=== PATIENT | female | born 1975 | race Caucasian/White ===

== ENCOUNTER 2022-10-11 16:12 | Outpatient (CLI) | payer BC, SELFPAY ==
--- NOTE | ~2022-10-11 | MM_ITS ---
EXAMINATION: MM screening alexandra BI w leighann HISTORY: Screening mammogram TECHNIQUE: Craniocaudal and mediolateral oblique 3-D tomosynthesis images were obtained and synthetic 2-D images were generated. CAD analysis was submitted and interpreted. COMPARISON: 07/12/2021, 07/06/2020 [facility] bilateral screening mammogram examinations BREAST PARENCHYMAL COMPOSITION: The breasts are almost entirely fatty. FINDINGS: There is no evidence of suspicious mass, calcification, or architectural distortion to sugg est malignancy in either breast. There has been no suspicious interval change. IMPRESSION: 1. No mammographic evidence of malignancy. 2. Recommend routine screening mammography in one year. BI-RADS Category 1: Negative Reviewed, dictated and finalized at location A.
== END 2022-10-11 16:13 | disposition home or self-care (01) ==
LOC: ANHIMG 16:17
PROVIDERS: PCP Physician Assistant; Visit Provider Physician Assistant
DX: Z12.31 Encounter for screening mammogram for malignant neoplasm of breast (principal)
CPT/HCPCS: 77063; 77067

== ENCOUNTER 2023-12-20 14:55 | Outpatient (CLI) | payer BC, SELFPAY ==
--- NOTE | ~2023-12-20 | MM_ITS ---
EXAMINATION: MM screening alexandra BI w leighann HISTORY: Screening TECHNIQUE: Craniocaudal and mediolateral oblique 3-D tomosynthesis images were obtained and synthetic 2-D images were generated. CAD analysis was submitted and interpreted. COMPARISON: Comparison to multiple prior studies sequentially, with oldest reviewed study dated 07/06/2020. BREAST PARENCHYMAL COMPOSITION: Not dense: There are scattered areas of fibroglandular density. FINDINGS: There is no evidence of suspicious mass, calcification, or architectural distortion to sugg est malignancy in either breast. There has been no suspicious interval change. IMPRESSION: 1. No mammographic evidence of malignancy. 2. Recommend routine screening mammography in one year. BI-RADS Category 1: Negative Reviewed, dictated and finalized at location B.
== END 2023-12-20 14:56 | disposition home or self-care (01) ==
PROVIDERS: PCP Physician Assistant; Visit Provider Obstetrics & Gynecology
DX: Z12.31 Encounter for screening mammogram for malignant neoplasm of breast (principal)
CPT/HCPCS: 77063; 77067

== ENCOUNTER 2024-02-25 01:04 | Day surgery (SDC) | payer BC, SELFPAY ==
[2024-02-18 09:53] VITALS: BMI 32.4
[2024-02-25 12:08] VITALS: BP 117/75; PULSE 78; RESP 18; TEMP 36.2; O2SAT 100
[2024-02-25] MEDS: LACTATED RINGERS 1,000 ML 150 ML IV CONT (12:30)
[2024-02-25 12:34] LABS: BEDSIDEPREGUCG Negative (Negative)
--- NOTE | 2024-02-25 12:38 | P.PNAN_ITS ---
Anes - Initial Pre Proc Eval Procedure: Operation Date: 02/25/24 13:30 Proposed Procedures p Screening Colonoscopy - Pelon Busch MD Date/Time: 02/25/24 12:38 Surgeon: Pelon Busch MD Pre Op Diagnosis: screening colon Patient Data Age: 48 Gender: F Height: 1.7 m Weight: 106.9 kg Last Vital Signs Temp 36.2 C L 02/25/24 12:08 Pulse 78 02/25/24 12:08 Resp 18 02/25/24 12:08 BP 117/75 02/25/24 12:08 Pulse Ox 100 02/25/24 12:08 O2 Del Method Room Air 02/25/24 12:08 Allergies Allergy/AdvReac Type Severity Reaction Status Date / Time ciprofloxacin Allergy Unknown Unknown Verified 02/25/24 12:07 dapsone Allergy Unknown Unknown Verified 02/25/24 12:07 Penicillins Allergy Unknown Unknown Verified 02/25/24 12:07 Home Medications Medication Instructions Recorded Confirmed Type No Home Medications 11/02/22 02/25/24 History Laboratory Tests 02/25/24 12:32 POC Urine HCG, Qual Negative (Negative) Patient hx anesthesia problems: none Family hx anesthesia problems: none Results Review: All pre-operative results and documents have been reviewed as part of the pre- operative evaluation. [facility] Past Medical History Medical History Anemia Enlarged thyroid Irregular heart beat Septate uterus Surgical History Surgical History H/O tubal ligation History of 2 sections History of tonsillectomy Family History Family History Other Family history of cardiovascular disease Family history of osteoporosis Family history of thyroid disease Social History Social History Smoking status: Never smoker Alcohol intake: never Substance use: never Substance use type: does not use Living arrangements: with family Spiritual care concerns: No Anes - Eval Final PreProcedure Day of Procedure 02/25/24 12:38 Patient weight: obese Heart: regular rate and rhythm Lungs: clear to auscultation Airway: Mallampati scale class II Neurological: alert and oriented Last oral intake: >/= 8 hours ASA classification: II Emergent: no Anesthetic plan: proceed Anesthesia type and monitoring: general GIVS Results Review: All pre-operative results and documents have been reviewed as part of the pre- operative evaluation. Informed Consent: The patient's anesthetic plan and its attendant risks and benefits were discussed with the patient/family/POA. Questions were solicited and answers prov ided to the satisfaction of the patient/family/POA.
--- NOTE | 2024-02-25 12:40 | PM.HPGS ---
History of Present Illness History of Present Illness Consent: Risks, benefits, and alternatives have been discussed and questions answered. Patient agrees to proceed with procedure. Chief complaint: screening colon Narrative: Kiarra Montaño is a 48 year old female here for screening colonoscopy, last one about 8-10 years ago Review of Systems Review of Systems: All systems reviewed & are unremarkable except as noted in HPI and below PMFSH Past Medical History Medical History (Updated 02/25/24 @ 12:41 by Pelon Busch MD) Anemia Colon cancer screening Enlarged thyroid Irregular heart beat Septate uterus Surgical History Surgical History H/O tubal ligation History of 2 sections History of tonsillectomy Family History Family History Other Family history of cardiovascular disease Family history of osteoporosis Family history of thyroid disease Social History Social History Smoking status: Never smoker Alcohol intake: never Substance use: never Substance use type: does not use Living arrangements: with family Spiritual care concerns: No Meds Home Medications and Allergies Home Medications Medication Instructions Recorded Confirmed Type No Home Medications 11/02/22 02/25/24 History Allergies Allergy/AdvReac Type Severity Reaction Status Date / Time ciprofloxacin Allergy Unknown Unknown Verified 02/25/24 12:07 dapsone Allergy Unknown Unknown Verified 02/25/24 12:07 Penicillins Allergy Unknown Unknown Verified 02/25/24 12:07 Vital Signs Vital Signs - 24 hr 02/25/24 12:08 Temperature 97.1 F L Pulse Rate 78 Respiratory Rate 18 Blood Pressure 117/75 Pulse Oximetry 100 Oxygen Delivery Room Air Exam Const: General: comfortable and no acute distress HENMT: Face/Nose/Sinus: Normal nares present Eyes: General: appearance normal, both eyes and all related structures Neck: Neck: no JVD Resp: Auscultation: clear to auscultation bilaterally Cardio: Rate: regular rate Rhythm: regular rhythm GI: Inspection: non-distended GI Palp: Yes Soft to palpation Skin: General skin exam: normal color Neuro: General: gait normal Speech: normal speech Extrem: General: normal to inspection Psych: Mental Status: mental status grossly normal Assessment and Plan Assessment and plan (1) Colon cancer screening: Code(s): Z12.11 - Encounter for screening for malignant neoplasm of colon Status: Acute Assessment and Plan: colonoscopy
[2024-02-25 12:53] VITALS: BP 108/83; PULSE 67; RESP 16; O2SAT 98
[2024-02-25 13:03] VITALS: BP 106/65; PULSE 60; RESP 16; O2SAT 99
[2024-02-25 13:10] VITALS: BP 115/73; PULSE 60; RESP 16; O2SAT 100
== END 2024-02-25 13:25 | disposition home or self-care (01) ==
PROVIDERS: Anesthesiology; PCP Physician Assistant; Visit Provider Internal Medicine Gastroenterology
PROC: 0DJD8ZZ Inspection of Lower Intestinal Tract, Via Natural or Artificial Opening Endoscopic (ICD-10-PCS; CPT 45378; principal; 2024-02-25 13:30)
DX: Z12.11 Encounter for screening for malignant neoplasm of colon (principal); K64.8 Other hemorrhoids; E66.9 Obesity, unspecified; Z68.36 Body mass index [BMI] 36.0-36.9, adult
CPT/HCPCS: 45378; J2704; J7120

== ENCOUNTER 2024-05-12 17:46 | Emergency (ER) | payer OTHER, BC, SELFPAY ==
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
--- OUTSIDE RECORDS SUMMARY | 2024-05-12 17:48 | XMS_ITS | Clinical Summary ---
Author Organization [facility] Address [address] [place] [address] Care Team Providers Care Program Support Assistant Name Role Phone Negrita Agrawal Primary Care Pr ovider Allergies Active Allergy Reactions Criticality Noted Date Comments Ciprofloxacin Dapsone Unknown 10/01/2018 Penicillins Medications ergocalciferol (VITAMIN D) 50,000 unit capsule Active ferrous gluconate 236 mg (27 mg iron) tablet Active Active Problems Problem Noted Date Diagnosed Date Multinodular goiter 02/02/2014 Assessment & Plan (01/25/2023 1:22 PM CDT): Thyroid ultrasound done today does not show any significant changes when I compared imaging available on the x-ray portal from 2014 of thyroid ultrasound done at that time. I reassured the patient that this is a unchanged goiter at least from 2014, with to FNA done in the past been benign the of malignancy are very negligible. I would not recommend any further follow-up probably for another 5 years unless the patient develops any any new symptoms Assessment & Plan (10/02/2018 9:47 AM CDT): Bedside ultrasound today showed her right superior nodule previously biopsied x2 is unchanged. Left mid cystic lesion has decreased in size, and left superior thyroid nodule was previously biopsied benign and is similar in size. She does not require repeat biopsy today and can be followed by ultrasound in 3 yrs. -repeat TSH, FT4 today -thyroid ultrasound 3 yrs -RTC 3 yrs Dysphonia 12/18/2013 Abdominal pain 08/29/2012 Palpitations 06/28/2012 Chronic infection of sinus 10/16/2011 Celiac disease 10/16/2011 Never smoked tobacco 10/16/2011 Overview (07/27/2017): Description: 10/16/11 Intracranial tumor 08/08/2011 Surgical History Surgery Date Site/Laterality Comments TUBAL LIGATION SECTION X2 Medical History Medical History Date Comments Nontoxic single thyroid nodule N ontoxic single thyroid nodule - (Added by TW Conv) Family History Medical History Relation Name Comments Hypertension Father Family history of hypertension - (Added by TW Conv) Relation Name Status Comments Father Alive Mother Alive Social History Tobacco Use Types Packs/Day Years Used Date Smoking Tobacco: Never Smokeless Tobacco: Never Tobacco Cessation:Counseling Given: Not Answered Comments No Sex and Gender Information Value Date Recorded Sex Assigned at Not on file Legal Sex Female 12:24 AM COTTON SEED CULLER Gender Identity Not on file Sexual Orientation Not on file Obstetrics History Last Filed Vital Signs Vital Sign Reading Time Taken Comments Blood Pressure 100/70 01/25/2023 9:13 AM CDT Pulse 85 01/25/2023 9:13 AM CDT Temperature - - Respiratory Rate - - Oxygen Saturation 100% 06/26/2012 1:08 PM CDT Inhaled Oxygen Concentration - - Weight 104.4 kg (230 lb 1 oz) 01/25/2023 9:13 AM CDT Height 170.2 cm (5' 7 ) 01/25/2023 9:13 AM CDT Body Mass Index 36.03 01/25/2023 9:13 AM CDT Plan of Treatment Health Maintenance Due Date Last Done Comments Breast Cancer Screening-Mammogram 1974 Cervical Cancer Screening 1974 Colon Cancer Screening-Colonoscopy 1974 Depression Screening 1974 Hepatitis C Screening 1974 DTaP/Tdap/Td Vaccine (1 - Tdap) 1985 Regular Well Visit/Exam 18-64 1992 Covid-19 Vaccine ( - season) 2023 05/28/2020, 05/07/2020, 04/23/2020, Additional history exists Influenza Vaccine (#1) 2023 , 12/31/2014, 01/17/2010, Additional history exists Zoster Vaccine (1 of 2) 2024 Pneumococcal vaccine <65 Aged Out No longer eligible based on patient's age to complete this topic Insurance [facility] CHOICE PLUS Care Teams Program Support Assistant Relationship Specialty Start Date End Date Negrita Agrawal PA PCP - General Physician Tea Bag Machine Tender 10/02/18
--- OUTSIDE RECORDS SUMMARY | 2024-05-12 17:48 | XMS_ITS | Encounter Summary ---
Author Organization [facility] Address [address] [place] [address] Phone Care Team Providers Care Tobacco Sample Puller Name Role Phone Provider, None Primary Care Provider Unavailabl e Encounter Details Date Type Department Care Team (Late st Contact Info) Description 08/08/2021 Lab Requisition [facility] Services [address] [place] [address] Yaneli Spann APRN, COAL MILL OPERATOR [address] [place] [address] Encounter for antibody response examination; Encounter for screening for other viral diseases Social History Tobacco Use Types Packs/Day Years Used Date Smoking Tobacco: Never Assessed Comments Unknown Sex and Gender Information Value Date Recorded Sex Assigned at Not on file Legal Sex Female 5:43 PM CDT Gender Identity Not on file Sexual Orientation Not on file documented as of this encounter Progress Notes * Yaneli Spann APRN, CNP - 08/08/2021 3:40 PM CDT labs documented in this encounter Plan of Treatment Not on file documented as of this encounter Procedures Procedure Name Priority Date/Time Associated Diagnosis Comments HEPATITIS B SURFACE ANTIBODY (HBSAB) Routine 08/08/2021 1:00 PM CDT Encounter for antibody response examination Encounter for screening for other viral diseases documented in this encounter Results * HEPATITIS B SURFACE ANTIBODY (HBSAB) (08/08/2021 1:00 PM CDT) HEPATITIS B SURFACE ANTIBODY 12.54 mIU/mL [facility] ARCH [id number] 08/08/2021 10:46 PM CDT [facility] Comment: Detected Range: >12.00 Individual is considered immune to HBV infection Blood No Phlebotomy Charged / Unknown 08/08/2021 1:00 PM CDT 08/08/2021 3:41 PM CDT us Yaneli Spann ASPHALT WORKER, COAL MILL OPERATOR CHEMISTRY ORDERAB LES Final Result [facility] [address] [place] [address], [place] documented in this encounter Visit Diagnoses Diagnosis Encounter for antibody response examination Antibody response examination Encounter for screening for other viral diseases documented in this encounter Care Teams Tobacco Sample Puller Relationship Specialty Start Date End Date Provider, None [place] PCP - General 07/14/22 documented as of this encounter
--- OUTSIDE RECORDS SUMMARY | 2024-05-12 17:48 | XMS_ITS | Clinical Summary ---
Author Organization [facility] Address [address] [place] [address] Care Team Providers Care Chief Investigator Name Role Phone Unavailable Primary Care Provider Unavailabl e Source Comments [facility],non-owned Affiliates and Associated Physician Practices is amultiple site organization consisting of ambulatory clinics and hospital sitesin [place], [place], [place] and [place]. This disclosure is being madepursuant to the Care Everywhere program and may not contain all information available regarding this patient. Last updated 18.[facility] [employer] Social History Tobacco Use Types Packs/Day Years Used Date Smoking Tobacco: Never Assessed Sex and Gender Information Value Date Recorded Sex Assigned at Not on file Gender Identity Not on file Sexual Orientation Not on file Plan of Treatment Health Maintenance Due Date Last Done Comments COLOGUARD (AGES 45-75) - COL ON CA SCREENING 1974 COLON MONITORING 1974 COLONOSCOPY - COLON CA SCREENING 1974 CT COLONOGRAPHY - COLON CA SCREENING 1974 Colorectal Cancer Screening 1974 FIT - COLON CA SCREENING 1974 FLEX SIG - COLON CA SCREENING 1974 LIPID TESTING 1974 MAMMOGRAM 1974 PAP SMEAR 1974 HIV SCREENING 1989 HEPATITIS C SCREENING 02/27/1992 DTAP/TDAP/TD VACCINES (1 - Tdap) 1993 HEPATITIS B VACCINE (1 of 3 - 19+ 3-dose series) 1993 COVID-19 VACCINE ( - 2023-2 5 season) 2023 INFLUENZA VACCINE (#1) 2023 PNEUMOCOCCAL VACCINE 50+ (1 of 1 - PCV) 2024 ZOSTER VACCINE (1 of 2) 2024 DEPRESSION SCREENING 04/16/2024 HIB VACCINE Aged Out No longer eligi ble based on patient's age to complete this topic HPV VACCINE Aged Out No longer eligi ble based on patient's age to complete this topic MENINGOCOCCAL (Group B) VACCINE Aged Out No longer eligible based on patient's age to complete this topic MENINGOCOCCAL VACCINE Aged Out No keeley obie eligible based on patient's age to complete this topic PNEUMOCOCCAL VACCINE Aged Out No long er eligible based on patient's age to complete this topic
--- OUTSIDE RECORDS SUMMARY | 2024-05-12 17:48 | XMS_ITS | Encounter Summary ---
Author Organization [facility] Address [address] [place] [address] Phone Care Team Providers Care Privacy Specialist Name Role Phone Provider, None Primary Care Provider Unavailabl e Encounter Details Date Type Department Care Team (Latest Contact Info) Description 08/23/2022 Transcribe Orders [facility] Patient Access Admitting [address] [place] [address] Latricia Cordoba, HADOOP ANALYST, GLOBAL PRODUCT MANAGER [address] [place] [address] Special screening examination for respiratory tuberculosis (Primary Dx) Social History Tobacco Use Types Packs/Day Years Used Date Smoking Tobacco: Never Assessed Comments Unknown Sex and Gender Information Value Date Recorded Sex Assigned at Not on file Legal Sex Female 5:43 PM CDT Gender Identity Not on file Sexual Orientation Not on file COVID-19 Exposure Response Date Recorded In the last 10 days, have yo u been in contact with someone who was confirmed or suspected to have Coronavirus/COVID-19? No / Unsure 08/23/2022 12:38 PM CDT documented as of this encounter Plan of Treatment Not on file documented as of this encounter Visit Diagnoses Diagnosis Special screening examination for respiratory tuberculosis- Primary Screening examination for pulmonary tuberculosis documented in this encounter Care Teams Privacy Specialist Relationship Specialty Start Date End Date Provider, None [place] PCP - General 07/14/22 documented as of this encounter
--- OUTSIDE RECORDS SUMMARY | 2024-05-12 17:48 | XMS_ITS | Data Portability ---
Author Organization [facility] [employer], Main Office Address [address] [place] [address] Assessment No assessment recorded. Plan of Treatment Reminders Order Date Submit Date Provider Last Modified By Organization Details Last Modified Time Details Appointments None recorded. Lab CBC w/ auto diff 2022 023 [email or web address] [facility], [address], [place], [address], 3 10:42:31 CMP, serum or plasma 2022 023 [email or web address] 4 [facility], [address], [place], [address], 3 10:42:31 lipid panel, serum 2022 023 [email or web address] [facility], [address], [place], [address], 3 10:42:31 HbA1c (hemoglobin A1c), blood 2022 023 [email or web address] 4 [facility], [address], [place], [address], 3 10:42:31 TSH + free T4, serum 2022 023 [place] [facility], [address], [place], [address], 3 09:26:29 T3, free, serum or plasma 2022 023 [email or web address] [facility], [address], [place], [address], 3 10:42:30 tsi (thyroid-st imulating immunoglobu biju), serum 2022 023 [email or web address] 4 [facility], [address], [place], [address], 3 10:42:30 unlisted lab - thyroid peroxidase and thyroglobul in antibodies 2022 023 [email or web address] 4 [facility], [address], [place], [address], 3 10:42:30 insulin, serum 2022 023 [email or web address] 4 [facility], [address], [place], [address], 3 10:42:31 Referral endocrinolo gy referral [address] [place] [address] [facility] , [address], [place], [address], 3 15:24:20 Procedures colonoscopy screening (PROC) [address] [facility], [address], [place], [address], 4 08:30:10 Surgeries None recorded. Imaging US, thyroid 2022 023 [email or web address] 4 [facility], [address], [facility] [address], [place], [address], 4 12:34:48 Medication Orders None recorded. Patient TargetsNo targets recorded. Patient InstructionsNo instructions recorded. Reason for Referral Endocrinology Referral for M ultinodular goiter Referring Physician: Negrita Agrawal, Internal Medicine, Encounter Date: 08/29/2022 Results Created Date Observation Date Name Description Value Unit Range Abnormal Flag Note LastModifiedBy Organization Detail LastModifiedTime 07/20/19 22 07/12/2021 MAMMO , marv barong, digit al, bilat eral No observ ation record ed. [id number] [facility] (Radiology Scheduling) [address] [place] [address], [address], 06/14/2022 20:24:09 10/13/19 23 10/11/2022 MAMMO , bhupendrae chad, digit al, bilat eral No observ ation record ed. [address], [place], [address], 01/02/2023 18:35:40 Result Notes None recorded. Problems Name Problem SNOMED Code Status Onset Date Resolution Date Notes Provider Name and Address Organization Details Recorded Time Body mass index 30+ - obesity 826706480 Active 2021 Not Available [facility] 3 20:22:15 Diabetes mellitus screening Active 2021 Not Available [facility] 3 20:22:15 Adult health examination Active 2021 Not Available [facility] 3 20:22:15 Cholesterol screening Active 2021 Not Available [facility] 3 20:22:15 Screening for malignant neoplasm of colon Active 2021 Not Available [facility] 3 20:22:15 Vitamin D deficiency 77148062 Active 2021 Not Available [facility] 3 20:22:15 Acute urinary tract infection 290691580 Active 2021 Not Available [facility] 3 20:22:15 Iron deficiency anemia 03463460 Active 2021 Not Available [facility] 3 20:22:16 Multinodular goiter 792688534 Active 2022 MARYAM Hebert [address] [place] [address], [address] , [place] [facility] 16:38:27 Problem Notes None recorded. Procedures Surgical History Date Name Laterality Status Provider Name and Address Organization Details Recorded Time 04/16/19 10 Date of Last Colonoscopy completed Not Available [facility] 06/14/2022 20:21:37 Biopsy completed Not Available [facility] 04/2022 20:21:38 Tonsillectomy completed Not Available [facility] 06/14/2022 20:21:38 BOTANY PROFESSOR Surgery completed Not Available [facility] 06/14/2022 20:21:38 Vascular Surgery completed Not Available [facility] 06/14/2022 20:21:38 Imaging Results Imaging Date Name Status LastModified by Organiz ation Details LastModified Time 07/12/2021 MAMMO, screening, digital, bilateral completed [id number] [facility] (Radiology Scheduling) [address] [place] [place] [address], [place], [address], 06/14/2022 20:24:09 10/11/2022 MAMMO, screening, digital, bilateral completed [address] [facility] [address], [place], [address], 01/02/2023 18:35:40 Procedure Notes None recorded. Medical Equipment None Reported. Allergies Allergen ID Allergen Name Allergen Category Reaction Reaction Severity Criticality Documentation Date Start Date Code Code System Note Provider Name and Address Organization Details Recorded Time 82414 Product containin g penicilli n and antibioti c (product) medicatio n Not available Not available Not available 06/14/2022 52113 05 SNOMED Not Available [facility] 3 20:24:07 50915 dapsone medicatio n Not available Not available Not available 06/14/2022 3108 RxNorm Not Available [facility] 3 20:24:07 74547 Cipro medicatio n Not available Not available Not available 06/14/2022 96644 3 RxNorm Not Available [facility] 3 20:24:07 Medications Name Sig Start Date Stop Date Status Note LastModified by Organization Details LastModified Time azithromycin 250 mg tablet 08/28 completed Not Available Not Available Not Available ondansetron HCl 4 mg tablet TAKE 1 TABLET BY MOUTH EVERY 8 HOURS NEEDED 05/23 completed Not Available Not Available Not Available clindamycin HCl 150 mg capsule Take 1 capsule every 6 hours by oral route. 12/09 completed Not Available Not Available Not Available phentermine 37.5 mg tablet Take 1 tablet every day by oral route. 08/28 completed Not Available Not Available Not Available sulfamethoxa zole 800 mg-trimethop rim 160 mg tablet TAKE 1 TABLET BY MOUTH EVERY 12 HOURS 08/28 completed Not Available Not Available Not Available tramadol 50 mg tablet TAKE 1 TABLET BY MOUTH EVERY 6 HOURS NEEDED 05/23 completed Not Available Not Available Not Available oseltamivir 75 mg capsule 01/01 completed Not Available Not Available Not Available neomycin-sd ymyxin-dexam eth 3.5 mg/mL-10,000 unit/mL-0.1% eye drops 01/01 completed Not Available Not Available Not Available fluocinonide 0.05 % topical cream 01/01 completed Not Available Not Available Not Available Vitals Date Recorded Body mass index (BMI) Body height Oxygen saturation Oxygen saturation in Arterial blood by Pulse oximetry Heart rate Body temperature Body weight Systolic blood pressure Diastolic blood pressure Provider Name and Address Organization Details Last Updated DateTime 2 36.8 kg/m2 172.72 cm 98 % 98 % 60 /min 98.3 [degF] 299007. 35 g 110 mm[Hg] 79 mm[Hg] Not Available [facility] 3 20:22:06 Date Recorded Body height Body temperature Body mass index (BMI) Body weight Respiratory rate Oxygen saturation Oxygen saturation in Arterial blood by Pulse oximetry Heart rate Systolic blood pressure Diastolic blood pressure Provider Name and Address Organization Details Last Updated DateTime 3 172.72 cm 97.2 [degF] 35.1 kg/m2 250160. 84 g 16 /min 97 % 97 % 68 /min 120 mm[Hg] 72 mm[Hg] MENDEL Pickett [place] [facility] 3 15:20:08 Social History Question Answer Notes LastModified by Organizat ion Details LastModified Time Tobacco Smoking Status Never Smoker Not Available [facility] 06/14/2022 20:21:35 Do You Have An Advance Directive? No [id number] Information not available 06/14/2022 What Is Your Level Of Alcohol Consumption? Occasional [id number] Information not available 06/14/2022 What Is Your Level Of Caffeine Consumption? Occasional [id number] Information not available 06/14/2022 In The 14 Days Before Symptom Onset, Have You Had Close Contact With A Laboratory-confirm ed COVID-19 While That Case Was Ill? No [id number] 1573 Information not available 06/14/2022 In The 14 Days Before Symptom Onset, Have You Had Close Contact With A Person Who Is Under Investigation For COVID-19 While That Person Was Ill? No [id number].[id number] 7334 Information not available 06/14/2022 What Type Of Diet Are You Following? REGULAR [id number].506607 4007 Information not available 06/14/2022 Have There Been Any Changes To Your Family Or Social Situation? No [id number].980807 3658 Information not available 06/14/2022 Are There Any Guns Present In Your Home? No MIGRATION.070321 9001 Information not available 06/14/2022 Do You Use Insect Repellent Routinely? No [email or web address] Information not available 08/28/2022 Do You Have A Medical Power Of Cap Lining Machine Operator? No [email or web address] Information not available 08/28/2022 What Is Your Relationship Status? [id number] [id number] Information not available 06/14/2022 Do You Use Your Seat Belt Or Car Seat Routinely? Yes MIGRATION.852353 8336 Information not available 06/14/2022 Do You Have Smoke And Carbon Monoxide Detectors In Your Home? Yes MIGRATION.[id number] 3155 Information not available 06/14/2022 Do You Use Any Illicit Or Recreational Drugs? No MIGRATION.297110 3407 Information not available 06/14/2022 Do You Use Sunscreen Routinely? Yes MIGRATION.258053 0850 Information not available 06/14/2022 Have You Recently Traveled Abroad? No MIGRATION.893451 3287 Information not available 06/14/2022 Do You Have Any Dietary Restrictions? No MIGRATION.223810 7120 Information not available 06/14/2022 Do You Or Have You Ever Used Any Other Forms Of Tobacco Or Nicotine? No MIGRATION.326712 3264 Information not available 06/14/2022 Sex: Unknown Functional Status Question Answer Note LastModified by Organizat ion Details LastModified Time What is your exercise level? Occasional [id number] Information not available 06/14/2022 Mental Status None recorded. Family History Relationship Description Onset Age of this Age Resolved Age Notes LastModified by Organization Details LastModified Time Father Hypertensive disorder [id number] Not available 06/14/2022 20:21:39 Unspecified Relation Diabetes mellitus [id number] Not available 06/14/2022 20:21:39 Unspecified Relation Cerebrovascu lar accident MIGRATION.509 [id number] Not available 06/14/2022 20:21:39 Unspecified Relation Chronic obstructive pulmonary disease MIGRATION.652 [id number] Not available 06/14/2022 20:21:39 Unspecified Relation Malignant tumor of lung MIGRATION.756 [id number] Not available 06/14/2022 20:21:39 Medical History Condition Response BOWEL PROBLEMS Y BACK / NECK PROBLEMS Y BREAST PROBLEMS Y ENT Y VASCULAR DISEASE Y ANXIETY DISORDER Y Gynecological History Statement/Question Response Date of Last Pap 04/16/2016 Date of Last Mammogram 07/12/2021 Date of Last Colonoscopy 04/16/2009 Obstetrics History GPAL:G 0 P 0 0 0 0 Immunizations Vaccine Type Date Status Note Provider Nam e and Address Organization Details Recorded Time COVID-19, mRNA, LNP-S, PF, 100 mcg/0.5mL dose or 50 mcg/0.25mL dose 1 completed Not Available [facility] 06/14/2022 20:24:06 COVID-19, mRNA, LNP-S, PF, 100 mcg/0.5mL dose or 50 mcg/0.25mL dose 1 completed Not Available [facility] 06/14/2022 20:24:06 Hep B, unspecified formulation 1 completed Not Available [facility] 06/14/2022 20:24:06 Past Encounters Encounter ID Performer Location Encounter Start Date Encounter Closed Date Diagnosis/Indication Diagnosis SNOMED-CT Code Diagnosis ICD10 Code Diagnosis Note [id number] [facility] [address] [place] [address] 05/24/2021 00:00:00 06/13/2021 19:12:46 [id number] MARYAM Hebert [facility] [address] [place] [address] 08/29/2022 14:58:43 08/29/2022 16:38:59 Adult health examination 515185232 Z00.00 well exam completed and annual labs ordered Cholesterol screening 27 9865927 Z13.220 Diabetes m ellitus screening 920942834 Z13.1 Long-term drug therapy 144601308 Z79.899 Multinodular goiter 2375 88873 E04.2 due for updated thyroid u/s. check TFTs and refer to new Endo locally. Body mass index 30+ - obesity 508879981 Z68.35 Screening for malignant neoplasm of colon 731121276 Z12.11 Health Concerns Section Related Observation LastModified by Organization Detai ls LastModified Time None Recorded Concern Status LastModified by Organization Details LastModified Time None Recorded Advance Directives Directive N: Payers Encounter Date Sequence Insurance Name Policy Number Policy Gonzalez Covered Member ID Gonzalez Member ID Guarantor Name 08/29/2022 1 [place] [id number] 1 Erick Montaño [id number] Kiarra Montaño Notes Date Note Type Note Provider Name and Address Organization Details Recorded Time 08/29/2022 text/html Generic HPI TemplateReported bypatient.Notes:Pt is here for her wellness. No chronic prob/meds. she is working out and eating healthier and losing weight. MARYAM Hebert [address] [facility], [facility] [address], [place], [address], [facility] 08/31/2022 16:12:40 OBGyn Episode No OBEpisode recorded.
--- OUTSIDE RECORDS SUMMARY | 2024-05-12 17:48 | XMS_ITS | Encounter Summary ---
Author Organization [facility] Address [address] [place] [address] Phone Care Team Providers Care Curer Acid Drum Name Role Phone Provider, None Primary Care Provider Unavailabl e Encounter Details Date Type Department Care Team (Late st Contact Info) Description 02/29/2024 Telephone [facility] Outpatient [address] [place] [address] Kiarra Montaño, PAC [address] [place] [address] Social History Tobacco Use Types Packs/Day Years Used Date Smoking Tobacco: Never Assessed Comments Unknown Sex and Gender Information Value Date Recorded Sex Assigned at Not on file Legal Sex Female 5:43 PM CDT Gender Identity Not on file Sexual Orientation Not on file documented as of this encounter Plan of Treatment Not on file documented as of this encounter Visit Diagnoses Not on filedocumented in this encounter Care Teams Curer Acid Drum Relationship Specialty Start Date End Date Provider, Oliverio DAWKINS PCP - General 07/14/22 documented as of this encounter
--- OUTSIDE RECORDS SUMMARY | 2024-05-12 17:48 | XMS_ITS | Referral Summary ---
Author Organization [facility] Address [address] [place] [address] Care Team Providers Care Sales Support Rep Name Role Phone Unavailable Primary Care Provider Unavailabl e Source Comments [facility],non-owned Affiliates and Associated Physician Practices is amultiple site organization consisting of ambulatory clinics and hospital sitesin [place], [place], [place] and [place]. This disclosure is being madepursuant to the Care Everywhere program and may not contain all information available regarding this patient. Last updated 18.[facility] [employer] Social History Tobacco Use Types Packs/Day Years Used Date Smoking Tobacco: Never Assessed Sex and Gender Information Value Date Recorded Sex Assigned at Not on file Gender Identity Not on file Sexual Orientation Not on file Plan of Treatment Not on file
--- OUTSIDE RECORDS SUMMARY | 2024-05-12 17:48 | XMS_ITS | Clinical Summary ---
Author Organization [facility] Address [address] [facility] [address] [place] [address] Phone Care Team Providers Care Records Management Engineer Name Role Phone Provider, None Primary Care Provider Unavailabl e Encounters Date Type Department Care Team Description 02/29/2024 Telephone [facility] Outpatient [address] [place] [address] Kiarra Montaño, PAC from Last 3 Months Immunizations Immunization Administration Dates Next Due Covid-19, Mrna, Lnp-s, Pf, 3 0 Mcg/0.3 Ml Dose ([employer]) 04/23/2020,04/02/2020 Hepatitis B Vaccine 09/14/2000,05/17/2000,2000 Influenza Vaccine, Quadrivalent, PF 01/17/2023,1 ,12/31/2014 Influenza, Seasonal, Injectable, Undefined 01/17 TDAP Vaccine 10/08/2023 Social History Tobacco Use Types Packs/Day Years Used Date Smoking Tobacco: Never Assessed Comments Unknown Sex and Gender Information Value Date Recorded Sex Assigned at Not on file Legal Sex Female 5:43 PM CDT Gender Identity Not on file Sexual Orientation Not on file Plan of Treatment Health Maintenance Due Date Last Done Comments Hepatitis C Virus (HCV) Screening 1974 Pap Smear 1995 Cervical Cancer Screening (CCS) 2004 HPV/Cotest 2004 Discussion re Starting/Frequency of Mammograms 2014 Colonoscopy 2019 Colorectal Cancer Screening 2019 Influenza Immunization (#1) 2023 10/0 07/2022, 02/04/2021, 12/31/2014 SARS-COV-2 Immunization ( season) 2023 04/23/2020, 04/02/2020 Cologuard 2024 Immunochemical Fecal Occult Blood 2024 Mammogram 2024 Pneumococcal Immunization (5 0+ years) (1 of 1 - PCV) 2024 Zoster Immunization (1 of 2) 2024 Respiratory Syncytial Virus (RSV) Immunization (Adult) (1 - 1-dose 75+ series) 2049 Hepatitis B Immunization Completed 001, 05/17/2000, 04/16/2000 DTaP/Tdap/Td Immunization Discontinued 10/08/2023 TdaP Immunization Discontinued 10/08/2023 Meningococcal Immunization (ACWY) Aged Out No longer eligible based on patient's age to complete this topic Pneumococcal Immunization Combined Aged Out No longer eligible based on patient's age to complete this topic Rotavirus Immunization Aged Out No lo nger eligible based on patient's age to complete this topic Care Teams Records Management Engineer Relationship Specialty Start Date End Date Provider, None [place] PCP - General 07/14/22
--- OUTSIDE RECORDS SUMMARY | 2024-05-12 17:49 | XMS_ITS | Referral Summary ---
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/08/2011 Social History Tobacco Use Types Packs/Day Years Used Date Smoking Tobacco: Never Smokeless Tobacco: Never Tobacco Cessation:Counseling Given: Not Answered Comments No Sex and Gender Information Value Date Recorded Sex Assigned at Not on file Legal Sex Female 12:24 AM OUTSIDE SALES ENGINEER Gender Identity Not on file Sexual Orientation Not on file Last Filed Vital Signs Vital Sign Reading [...] 01/25/2023 9:13 AM CDT Plan of Treatment Not on file Insurance [facility] CHOICE PLUS [facility] HMO/PPO Address: [facility] [address] [place] [address] Care Teams Veneer Press Operator Relationship Specialty Start Date End Date Negrita Agrawal PA PCP - General Physician Carrier Loader 10/02/18
--- OUTSIDE RECORDS SUMMARY | 2024-05-12 17:49 | XMS_ITS | Data Portability ---
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 Mathis, will be ordered through her. Eye exam UTD, [facility] dental exam UTD, Dr. Tito Curtis Sees Derm yearly , [facility]. Thyroid nodule hx. Seeing Dr Mcmahon now for Endocrine. Not available 10/30/2023 09:52:43 Plan of Treatment Reminders Order Date Submit Date Provider Last Modified By Organization Details Last Modified Time Details Appointments ANY 15 2024 03:15P M MARYAM Hebert Not available Not available Not available ANNUAL 30 2024 08:30A M MARYAM Hebert Not available Not available Not available Lab TSH + free T4, serum 2023 024 [place], [address], [place], [address], 12/11/2023 10:13:27 lipid panel, serum 2023 024 [place], [address], [address], [place], [address], 12/11/2023 10:13:26 CMP, serum or plasma 2023 024 [place], [address], [address], [place], [address], 12/11/2023 10:13:28 CBC w/ auto diff 2023 024 [facility], [address], [place], [address], 12/11/2023 10:13:31 HbA1c (hemoglob in A1c), blood 2023 024 [facility], [address], [place], [address], 12/11/2023 10:13:29 insulin, serum 2023 [facility], [address], [place], [address], 12/11/2023 10:13:30 Referral None recorded. Procedures colonosco py screening (PROC) 2023 024 [facility], [address], [id number], [place], [address], 03/06/2024 11:44:03 Surgeries None recorded. Imaging None recorded. Medication Orders None recorded. Patient TargetsNo targets recorded. Patient Instructions Encounter Date Encounter Id Patient Instructions Last Modified By Organization Details Last Modified Time 10/30/2023 [id number] A healthy lifestyle: care instructions Not available 10/30/2023 10:01:00 Reason for Referral None Reported. Results Created Date Observation Date Name Description Value Unit Range Abnormal Flag Note LastModifiedBy Organization Detail LastModifiedTime 12/10/1912/11/2023 LIPID PANEL W/ CHOL/ HDL RATIO cholesterol, total 217 mg/dL 100-19 9 above high normal Not Available [facility] ([facility]) [address] [facility], [place], [address], 12/11/2023 10:13:26 12/10/19 24 12/11/2023 LIPID PANEL W/ CHOL/ HDL RATIO triglyceride s 162 mg/dL 0-149 above high normal Not Available [facility] ([facility]) [address] [place], [address], 12/11/2023 10:13:26 12/10/19 24 12/11/2023 LIPID PANEL W/ CHOL/ HDL RATIO HDL cholesterol 34 mg/dL >39 below low normal Not Available [facility] ([facility]) [address] [place], [address], 12/11/2023 10:13:26 12/10/19 24 12/11/2023 LIPID PANEL W/ CHOL/ HDL RATIO VLDL cholesterol rasta 30 mg/dL 5-40 Not Available [facility]) [address] [place], [address], 12/11/2023 10:13:26 12/10/19 24 12/11/2023 LIPID PANEL W/ CHOL/ HDL RATIO LDL chol calc ([facility]) 153 mg/dL 0-99 above high normal Not Available [facility] ([facility]) [address] [place], [address], 12/11/2023 10:13:26 12/10/19 24 12/11/2023 LIPID PANEL W/ CHOL/ HDL RATIO T. chol/HDL ratio 6.4 ratio 0.0-4. 4 above high normal T. Chol/ HDL Ratio Men Women 1/2 Avg.R isk 3.4 3.3 Avg.R isk 5.0 4.4 2X Avg.R isk 9.6 7.1 3X Avg.R isk 23.4 11.0 Not Available [facility] ([facility]) [address] [place], [address], 12/11/2023 10:13:26 12/10/19 24 12/11/2023 TSH+F REE T4 TSH 1.260 uIU/m L 0.450- 4.500 Not Available [facility] ([facility]) [address] [place], [address], 12/11/2023 10:13:27 08/26/20 24 12/11/2023 TSH+F REE T4 T4,free(dire ct) 1.32 NG/dL 0.82-1 .77 Not Available [facility] ([facility]) [address] [place], [address], 12/11/2023 10:13:27 12/10/19 24 12/11/2023 COMP. METAB OLIC PANEL (14) glucose 90 mg/dL 70-99 Not Available [facility] ([facility]) [address] [place], [address], 12/11/2023 10:13:28 12/10/19 24 12/11/2023 COMP. METAB OLIC PANEL (14) BUN 15 mg/dL 6-24 Not Available [facility] ([facility]) [address] [place], [address], 12/11/2023 10:13:28 12/10/19 24 12/11/2023 COMP. METAB OLIC PANEL (14) creatinine 1.02 mg/dL 0.57-1 .00 above high normal Not Available [facility] ([facility]) [address] [place], [address], 12/11/2023 10:13:28 12/10/19 24 12/11/2023 COMP. METAB OLIC PANEL (14) eGFR 67 mL/mi n/1.7 3 >59 Not Available [facility] ([facility]) [address] [place], [address], 12/11/2023 10:13:28 12/10/19 24 12/11/2023 COMP. METAB OLIC PANEL (14) BUN/creatini ne ratio 15 9-23 Not Available [facility] [address] [place], [address], 12/11/2023 10:13:28 12/10/19 24 12/11/2023 COMP. METAB OLIC PANEL (14) sodium 141 mmol/ L 134-14 4 Not Available [facility] ([facility]) [address] [facility] [place], [address], 12/11/2023 10:13:28 12/10/19 24 12/11/2023 COMP. METAB OLIC PANEL (14) potassium 4.0 mmol/ L 3.5-5. 2 Not Available [facility] ([facility]) [address] [facility] [place], [address], 12/11/2023 10:13:28 12/10/19 24 12/11/2023 COMP. METAB OLIC PANEL (14) chloride 104 mmol/ L 96-106 Not Available [facility] ([facility]) [address] [facility] [place], [address], 12/11/2023 10:13:28 12/10/19 24 12/11/2023 COMP. METAB OLIC PANEL (14) carbon dioxide, total 22 mmol/ L 20-29 Not Available [facility] ([facility]) [address] [facility] [place], [address], 12/11/2023 10:13:28 12/10/19 24 12/11/2023 COMP. METAB OLIC PANEL (14) calcium 9.0 mg/dL 8.7-10 .2 Not Available [facility] ([facility]) [address] [facility] [place], [address], 12/11/2023 10:13:28 12/10/19 24 12/11/2023 COMP. METAB OLIC PANEL (14) protein, total 6.6 g/dL 6.0-8. 5 Not Available [facility] ([facility]) [address] [facility] [place], [address], 12/11/2023 10:13:28 12/10/19 24 12/11/2023 COMP. METAB OLIC PANEL (14) albumin 4.4 g/dL 3.9-4. 9 Not Available [facility] ([facility]) [address] [facility], [place], [address], 12/11/2023 10:13:28 12/10/19 24 12/11/2023 COMP. METAB OLIC PANEL (14) globulin, total 2.2 g/dL 1.5-4. 5 Not Available [facility] ([facility]) [address] [facility], [place], [address], 12/11/2023 10:13:28 12/10/19 24 12/11/2023 COMP. METAB OLIC PANEL (14) bilirubin, total 0.5 mg/dL 0.0-1. 2 Not Available [facility] ([facility]) [address] [place], [address], 12/11/2023 10:13:28 12/10/19 24 12/11/2023 COMP. METAB OLIC PANEL (14) alkaline phosphatase 98 IU/L 44-121 Not Available [facility]) [address] [facility], [place], [address], 12/11/2023 10:13:28 12/10/19 24 12/11/2023 COMP. METAB OLIC PANEL (14) AST (SGOT) 20 IU/L 0-40 Not Available [facility] ([facility]) [address] [facility], [place], [address], 12/11/2023 10:13:28 12/10/19 24 12/11/2023 COMP. METAB OLIC PANEL (14) ALT (SGPT) 31 IU/L 0-32 Not Available [facility] ([facility]) [address] [place], [address], 12/11/2023 10:13:28 12/10/19 24 12/11/2023 HEMOG LOBIN A1C hemoglobin A1C 5.0 % 4.8-5. 6 Predi abete s: 5.7 - 6.4 Diabe liliana: >6.4 Glyce efren contr ol for adult s with diabe liliana: <7.0 Not Available [facility] ([facility]) [address] [facility], [place], [address], 12/11/2023 10:13:29 12/10/19 24 12/11/2023 INSUL IN insulin 18.0 uIU/m L 2.6-24 .9 Not Available [facility] ([facility]) [address] [facility], [place], [address], 12/11/2023 10:13:30 12/10/19 24 12/10/2023 CBC WITH DIFFE RENTI AL/PL ATELE T WBC 4.2 x10e3 /uL 3.4-10 .8 Not Available [facility] ([facility]) [address] [facility], [place], [address], 12/11/2023 10:13:31 12/10/19 24 12/10/2023 CBC WITH DIFFE RENTI AL/PL ATELE T RBC 4.52 x10e6 /uL 3.77-5 .28 Not Available [facility] ([facility]) [address] [facility], [place], [address], 12/11/2023 10:13:31 12/10/19 24 12/10/2023 CBC WITH DIFFE RENTI AL/PL ATELE T hemoglobin 14.3 g/dL 11.1-1 5.9 Not Available [facility] ([facility]) [address] [facility], [place], [address], 12/11/2023 10:13:31 12/10/19 24 12/10/2023 CBC WITH DIFFE RENTI AL/PL ATELE T hematocrit 43.4 % 34.0-4 6.6 Not Available [facility] ([facility]) [address] [facility], [place], [address], 12/11/2023 10:13:31 12/10/19 24 12/10/2023 CBC WITH DIFFE RENTI AL/PL ATELE T MCV 96 fL 79-97 Not Available [facility] ([facility]) [address] [facility], [place], [address], 12/11/2023 10:13:31 12/10/19 24 12/10/2023 CBC WITH DIFFE RENTI AL/PL ATELE T MCH 31.6 pg 26.6-3 3.0 Not Available [facility] ([facility]) [address] [facility], [place], [address], 12/11/2023 10:13:31 12/10/19 24 12/10/2023 CBC WITH DIFFE RENTI AL/PL ATELE T MCHC 32.9 g/dL 31.5-3 5.7 Not Available [facility] ([facility]) [address] [facility], [place], [address], 12/11/2023 10:13:31 12/10/19 24 12/10/2023 CBC WITH DIFFE RENTI AL/PL ATELE T RDW 13.3 % 11.7-1 5.4 Not Available [facility] ([facility]) [address] [facility], [place], [address], 12/11/2023 10:13:31 12/10/19 24 12/10/2023 CBC WITH DIFFE RENTI AL/PL ATELE T platelets 164 x10e3 /uL 150-45 0 Not Available [facility] ([facility]) [address] [place], [address], 12/11/2023 10:13:31 12/10/19 24 12/10/2023 CBC WITH DIFFE RENTI AL/PL ATELE T neutrophils 66 % notest ab. Not Available [facility] ([facility]) [address] [place], [address], 12/11/2023 10:13:31 12/10/19 24 12/10/2023 CBC WITH DIFFE RENTI AL/PL ATELE T lymphs 27 % notest ab. Not Available [facility] ([facility]) [address] [facility], [address], 12/11/2023 10:13:31 12/10/19 24 12/10/2023 CBC WITH DIFFE RENTI AL/PL ATELE T monocytes 5 % notest ab. Not Available [facility] ([facility]) [address] [facility], [place], [address], 12/11/2023 10:13:31 12/10/19 24 12/10/2023 CBC WITH DIFFE RENTI AL/PL ATELE T eos 1 % notest ab. Not Available [facility] ([facility]) [address] [facility], [place], [address], 12/11/2023 10:13:31 12/10/19 24 12/10/2023 CBC WITH DIFFE RENTI AL/PL ATELE T basos 1 % notest ab. Not Available [facility] ([facility]) [address] [facility], [place], [address], 12/11/2023 10:13:31 12/10/19 24 12/10/2023 CBC WITH DIFFE RENTI AL/PL ATELE T neutrophils (absolute) 2.8 x10e3 /uL 1.4-7. 0 Not Available [facility] ([facility]) [address] [place], [address], 12/11/2023 10:13:31 12/10/19 24 12/10/2023 CBC WITH DIFFE RENTI AL/PL ATELE T lymphs (absolute) 1.1 x10e3 /uL 0.7-3. 1 Not Available [facility] ([facility]) [address] [place], [address], 12/11/2023 10:13:31 12/10/19 24 12/10/2023 CBC WITH DIFFE RENTI AL/PL ATELE T monocytes(ab solute) 0.2 x10e3 /uL 0.1-0. 9 Not Available [facility] ([facility]) [address] [facility], [place], [address], 12/11/2023 10:13:31 12/10/19 24 12/10/2023 CBC WITH DIFFE RENTI AL/PL ATELE T eos (absolute) 0.0 x10e3 /uL 0.0-0. 4 Not Available [facility] ([facility]) [address] [facility], [place], [address], 12/11/2023 10:13:31 12/10/19 24 12/10/2023 CBC WITH DIFFE RENTI AL/PL ATELE T baso (absolute) 0.0 x10e3 /uL 0.0-0. 2 Not Available [facility] ([facility]) [address] [facility], [place], [address], 12/11/2023 10:13:31 12/10/19 24 12/10/2023 CBC WITH DIFFE RENTI AL/PL ATELE T immature granulocytes 0 % notest ab. Not Available [facility]) [address] [facility], [place], [address], 12/11/2023 10:13:31 12/10/19 24 12/10/2023 CBC WITH DIFFE RENTI AL/PL ATELE T immature grans (abs) 0.0 x10e3 /uL 0.0-0. 1 Not Available [facility] ([facility]) [address] [facility], [place], [address], 12/11/2023 10:13:31 12/21/19 24 12/20/2023 MAMMO , scree chad, digit al, bilat eral No observ ation record ed. [email or web address] [facility] [address] [place], [address], 12/21/2023 08:48:54 Result Notes None recorded. Problems Name Problem SNOMED Code Status Onset Date Resolution Date Notes Provider Name and Address Organization Details Recorded Time Body mass index 30+ - obesity 141974838 Active 024 MARYAM Hebert Attn: Accounting ,[address], [place], [address] , [facility] 4 09:38:15 Obesity 967750149 Active 024 MARYAM Hebert Attn: Accounting ,[address], [place], [address] , [facility] 4 09:38:16 Thyroid nodule 383075642 Active 024 MARYAM Hebert Attn: Accounting ,[address], [place], [address] , [facility] 4 13:41:15 Problem Notes None recorded. Procedures Surgical History Date Name Laterality Status Provider Name and Address Organization Details Recorded Time Tonsillectomy completed Kobi Campbell MA [facility] 10/30/2023 10:19:58 excision of bilateral fallopian tubes and ovaries completed Kobi Campbell MA [facility] 10/30/2023 10:20:09 section completed Kobi Campbell MA [facility] 10/30/2023 10:20:15 Imaging Results Imaging Date Name Status LastModified by Organiz ation Details LastModified Time 12/20/2023 MAMMO, screening, digital, bilateral completed [email or web address] [place] [address] [place], [address], 12/21/2023 08:48:54 Procedure Notes None recorded. Medical Equipment None Reported. Allergies Allergen ID Allergen Name Allergen Category Reaction Reaction Severity Criticality Documentation Date Start Date Code Code System Note Provider Name and Address Organization Details Recorded Time [id number] 2824e Product containin g penicilli n and antibioti c (product) medicatio n Not available Not available Not available 10/30/2023 54818 05 SNOMED child capellan Not Available Not Available Not Available [id number] Cipro medicatio n vasculiti s Not available Not available 10/30/2023 03816 3 RxNorm Not Available Not Available Not Available Medications Name Sig Start Date Stop Date Status Note LastModified by Organization Details LastModified Time azithromyci n 250 mg tablet TAKE DIRECTED 10/29 completed Not Available Not Available Not Available triamcinolo ne acetonide 0.1 % topical ointment APPLY TO THE AFFECTED AREA ON LEG TWICE DAILY NEEDED 10/29 completed Not Available Not Available Not Available cefdinir 300 mg capsule TAKE ONE CAPSULE BY MOUTH TWICE DAILY 10/29 completed Not Available Not Available Not Available Vitals Date Recorded Body weight Provider Name an d Address Organization Details Last Updated DateTime 10/30/2023 804620.27 g Kobi Campbell MA [facility] 10/29 09:30:47 Date Recorded Body mass index (BMI) Body height Provider Name and Address Organization Details Last Updated DateTime 10/30/2023 37 kg/m2 170.82 cm Kobi Campbell MA [facility] 10/30/2023 09:30:34 Date Recorded Respiratory rate Provider Name a nd Address Organization Details Last Updated DateTime 10/30/2023 18 /min Kobi Campbell MA [facility] 10/30/2023 09:30:35 Date Recorded Oxygen saturation Oxygen saturation in Arterial blood by Pulse oximetry Provider Name and Address Organization Details Last Updated DateTime 10/30/2023 97 % 97 % Kobi Campbell MA [facility] 10/30/2023 09:34:43 Date Recorded Heart rate Provider Name an d Address Organization Details Last Updated DateTime 10/30/2023 72 /min Kobi Campbell MA [facility] 2023 09:34:45 Date Recorded Systolic blood pressure Diastolic blood pressure Provider Name and Address Organization Details Last Updated DateTime 10/30/2023 118 mm[Hg] 82 mm[Hg] Kobi Campbell MA [facility] 10/30/2023 09:36:03 Date Recorded Systolic blood pressure Diastolic blood pressure Provider Name and Address Organization Details Last Updated DateTime 10/30/2023 122 mm[Hg] 80 mm[Hg] MARYAM Hebert Attn: Accounting,[address] [place], [address], [facility] 10/30/2023 10:00:47 Social History Question Answer Notes LastModified by Organizat ion Details LastModified Time Tobacco Smoking Status Never Smoker CARLOS Kaiser, [facility] 10/30/2023 09:32:44 Do You Have An Advance Directive? No Information not available 10/30/2023 What Is Your Level Of Alcohol Consumption? None Information not available 10/30/2023 Are You Blind Or Do You Have Difficulty Seeing? Yes Contacts/gl asses Information not available 10/30/2023 What Is Your Level Of Caffeine Consumption? Moderate Tea/coffee On Occasion 5x A Week Information not available 10/30/2023 In The 14 Days Before Symptom Onset, Have You Had Close Contact With A Laboratory-confir med COVID-19 While That Case Was Ill? No Information not available 10/30/2023 In The 14 Days Before Symptom Onset, Have You Had Close Contact With A Person Who Is Under Investigation For COVID-19 While That Person Was Ill? No Information not available 10/30/2023 Have You Been To An Area Known To Be High Risk For COVID-19? No Information not available 10/30/2023 Are You Deaf Or Do You Have Serious Difficulty Hearing? No Information not available 10/30/2023 What Type Of Diet Are You Following? REGULAR Information not available 10/30/2023 Are There Any Guns Present In Your Home? No Information not available 10/30/2023 What Was The Date Of Your Most Recent Tobacco Screening? 10/30/2023 Information not available 10/30/2023 Do You Use Your Seat Belt Or Car Seat Routinely? Yes Information not available 10/30/2023 Do You Have Smoke And Carbon Monoxide Detectors In Your Home? Yes Information not available 10/30/2023 Do You Feel Stressed (tense, Restless, Nervous, Or Anxious, Or Unable To Sleep At Night)? [id number] Information not available 10/30/2023 Do You Use Any Illicit Or Recreational Drugs? No Information not available 10/30/2023 Do You Use Sunscreen Routinely? Yes Information not available 10/30/2023 Has Tobacco Cessation Counseling Been Provided? Yes Information not available 10/30/2023 On What Date Was Tobacco Cessation Counseling Provided? 10/30/2023 Information not available 10/30/2023 Do You Or Have You Ever Used Any Other Forms Of Tobacco Or Nicotine? No Information not available 10/30/2023 Sex: Female Functional Status Question Answer Note LastModified by Organizat ion Details LastModified Time Are you able to care for yourself? Yes Information not available 10/30/2023 What is your exercise level? Occasional 2-4 x a week Information not available 10/30/2023 Mental Status None recorded. Family History Relationship Description Onset Age of this Age Resolved Age Notes LastModified by Organization Details LastModified Time Mother Osteoporosis [email or web address] Not avai lable 10/30/2023 10:20:34 Notes:no b, no cholestral, n o diabetes Medical History Condition Response Skin Problems Y Anemia Y Thyroid Problems Y GI Problems Y Gynecological History Statement/Question Response Menses Monthly N Current Control Method Menopause Obstetrics History GPAL:G 3 P 3 0 0 3 Type Value Full Term 3 Induced 0 Spontaneous 0 Premature 0 Living 3 Total 3 Past Encounters Encounter ID Performer Location Encounter Start Date Encounter Closed Date Diagnosis/Indication Diagnosis SNOMED-CT Code Diagnosis ICD10 Code Diagnosis Note [id number] [facility] [address] [place] [address] 10/30/2023 09:23:55 10/30/2023 10:03:17 Body mass index 30+ - obesity 420023923 Z68.37 Fasting insulin level is ordered for insulin resistance assessment Obesity 179949590 E66.8 discussed healthy diet, exercise, controllin g carbohydra liliana and added sugars in the diet Adult heal th examination 356376882 Z00.00 Annual wellness exam complete Cholesterol screening 27 3632767 Z13.220 Fasting cholestero l panel is due Diabetes m ellitus screening 490787325 Z13.1 Annual A1c screening is due for diabetes risk assessment Thyroid di sorder screening 231848239 Z13.29 Routine thyroid function labs are due Screening for malignant neoplasm of colon 317064854 Z12.11 Patient is due still for routine baseline screening colonoscop y and this will be ordered again. Thyroid nodule 421907442 E04.1 cleared now. no f/u per Dr. Mcmahon. she does have multiple nodules and hx of benign nodules. Health Concerns Section Related Observation LastModified by Organization Detai ls LastModified Time None Recorded Concern Status LastModified by Organization Details LastModified Time None Recorded Advance Directives Directive N: Payers Encounter Date Sequence Insurance Name Policy Number Policy Gonzalez Covered Member ID Gonzalez Member ID Guarantor Name 10/30/2023 1 [place] [id number] Kiarra Montaño [id number] Kiarra Montaño Notes Date Note Type Note Provider Name and Address Organization Details Recorded Time 10/30/2023 text/html patient is here to re-establish care with primary care provider. Here for annual wellness. She also has a remote history of a thyroid nodule that she wants to discuss because she is now cleared from endocrinology. She has no new symptoms concerning the nodule. MARYAM Hebert Attn: Accounting,[address], [place], [address], [place] [facility] 11/06/2023 13:42:39 OBGyn Episode No OBEpisode recorded.
--- OUTSIDE RECORDS SUMMARY | 2024-05-12 17:49 | XMS_ITS | Patient Health Summary ---
Author Organization [facility] Address [address] [place] [address] Care Team Providers Care Beer Runner Name Role Phone Unavailable Primary Care Provider Unavailabl e Note from [facility],non-owned Affiliates and Associated Physician Practices is amultiple site organization consisting of ambulatory clinics and hospital sitesin [place], [place], [place] and [place]. This disclosure is being madepursuant to the Care Everywhere program and may not contain all information available regarding this patient. Last updated 18.[facility] Social History Tobacco Use Types Packs/Day Years Used Date Smoking Tobacco: Never Assessed Sex and Gender Information Value Date Recorded Sex Assigned at Not on file Gender Identity Not on file Sexual Orientation Not on file Procedures * PATHOLOGY/GENETICS HISTORICAL-ONBASE(Performed 08/23/2010) * GROSS + MICRO EXAM(Performed 09/10/2009) Results * PATHOLOGY/GENETICS HISTORICAL-ONBASE (08/23/2010) 08/23/2010 Historical Provider LAB - CHEMISTRY O RDERABLES [facility] * GROSS + MICRO EXAM (09/10/2009 8:51 AM CDT) Result CASE NUMBER [id number] Comment: ORDERING PHYSICIAN ??MICAH ACHARYA SPECIMEN TYPE ?Biopsy-Egd,duodenum *CLINICAL HISTORY ? A 34 year old female with questionable celiac sprue underwent EGD. ?? Post- operative diagnosis ??rule out celiac sprue. SPECIMEN SOURCE ? Biopsy, duodenum. GROSS DESCRIPTION ? The specimen is received in one part. Received in formalin, labeled with the patient's identification, and designated bx, duodenum are two fragments of brown, soft tissue, each measuring 0.2 x 0.1 x <0.1 cm. ??Submitted entirely in cassette A1. HC/lw GROSSED BY ? LAURA FARLEY M.D. *MICROSCOPIC EXAM ? Microscopic examination substantiates the above cited diagnosis. READ BY ?LAURA FARLEY M.D. DIAGNOSIS ? DUODENUM, ENDOSCOPIC BIOPSY ?- DUODENAL MUCOSA WITH MILD INTRAEPITHELIAL ?LYMPHOCYTOSIS, SEE COMMENT. *COMMENT ? The duodenal mucosa fragments show increased lymphocytes in the villous epithelium without associated villous atrophy and crypt elongation. The findings may be associated with early celiac sprue, however the features are non-diagnostic. Similar histologic changes can be seen in other conditions such as hypersensitivity to non-gluten proteins, autoimmune disease, drug injuries, enteritis, H-pylori associated gastritis, and Crohn's disease. Clinical correlation is needed. ??Serologic test is recommended. ??No parasitic organisms are seen. RELEASED BY ?LAURA FARLEY MISCELLANEOUS SAMPLES / Unknown 09/10/2009 8:51 AM CDT 09/10/2009 11:24 AM CDT Historical Provider LAB - PATHOLOGY/C YTOLOGY ORDERABLES
--- OUTSIDE RECORDS SUMMARY | 2024-05-12 17:49 | XMS_ITS | Continuity of Care Document ---
Author Organization [facility] Address [address] [place] [address] Phone Care Team Providers Care Repack Room Worker Name Role Phone Nakul Jones MD Unavailable Unavailable Allergies, Adverse Reactions, Alerts Substance Reaction Status Criticality PENICILLIN Active No Information CIPROFLOXACIN HCL Active No Informa tion ciprofloxacin Active No Information Medications Medication Instructions Dosage Effective Dates (start - stop) Status Comments Vazalore 81 mg capsule - Active Vitamin D2 1,250 mcg (50,000 unit) capsule take 1 capsule by oral route every month 09219 UNITS - Active vitamin E 100 unit [...] INC PLATELETS AND DIFFERENTIAL ROUTINE VENIPUNCTURE OFFICE [id number] BODY MASS INDEX DOCD SYST BP LT 130 MM HG DIAST BP < 80 MM HG Advance Directives Directive Yes / No Effective Date File Name No Information Encounters Encounter Description Practice Location Reason(s) For Visit Diagnoses Date Provider Providers Copied on Encounter [facility] [address], [place], [place], [id number], [place] tel:[phone] [facility] No Information Aundreatahir Mota. [address] [place] [address], [id number], . tel:[phone] OFFICE [id number] TAMI [facility], [address], [place], [place], [id number], [place] tel:[phone] [facility] acute problem (chief complaint) COVID-19 Aundreatahir Mota. [address] [place] [address], [id number], [place]. tel:[phone] Referring Provider: Nakul Jones, [address] [place] [address], [address] . tel:[phone] Family History Family Member Type Diagnosis Age At Onset No Information Payers Payer name Insurance type Covered democrat ID Duane duquesherri(s) [facility] ACCESS [id number] Social History Type Description Quantity Date Captured Comments Alcohol Use Details Unknown Caffeine Use Details Unknown Tobacco Use Status No Information Smoking Status No Information Sex Female Sexual Orientation Straight or heterosexual Gender Identity Female Chief Complaint And Reason For Visit No Information Reason For Referral Reason For Referral No Information Plan Of Treatment Date Type Action Status Referral Referred To: [address] [place] [address], [id number] [phone] Ordered: Chest Xray, 2 Views ordered History [...] it very oftenAllergic to PCN (allergy as ) and Cipro (vasculitis). Side effect from Dapsone but does not recall what it was. 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 Request form completed and faxed to [facility].Check CXR and CBC. Would go ahead and [...]
[2024-05-12 18:04] VITALS: BP 100/66; PULSE 68; RESP 18; TEMP 36.4; O2SAT 100
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
--- OUTSIDE RECORDS SUMMARY | 2024-05-12 20:18 | XMS_ITS | Encounter Summary ---
Author Organization [facility] Address [address] [place] [address] Phone Care Team Providers Care Fitness Plan Coordinator Name Role Phone Provider, None Primary Care Provider Unavailabl e Encounter Details Date Type Department Care Team (Late st Contact Info) Description 02/29/2024 Telephone [facility] Outpatient [address] [place] [address] [place] [address] Kiarra Montaño, PAC [address] [place] [address] Social History Tobacco Use Types Packs/Day Years [...] on filedocumented in this encounter Care Teams Fitness Plan Coordinator Relationship Specialty Start Date End Date Provider, Oliverio DAWKINS PCP - General 07/14/22 documented as of this encounter
--- OUTSIDE RECORDS SUMMARY | 2024-05-12 20:18 | XMS_ITS | Clinical Summary ---
Author Organization [facility] Address [address] [place] [address] Care Team Providers Care Exhaust And Muffler Repairer Name Role Phone Negrita Agrawal Primary Care [...] on file Legal Sex Female 12:24 AM DIRECTOR OF ANESTHESIA SERVICES Gender Identity Not on file Sexual Orientation [...] patient's age to complete this topic Insurance [facility] CHOICE PLUS Care Teams Exhaust And Muffler Repairer Relationship Specialty Start Date End Date Negrita Agrawal PA PCP - General Physician Physical Therapist 10/02/18
--- OUTSIDE RECORDS SUMMARY | 2024-05-12 20:18 | XMS_ITS | Encounter Summary ---
Author Organization [facility] Address [address] [place] [address] Phone Care Team Providers Care Pitch Gatherer Name Role Phone Provider, None Primary Care Provider Unavailabl e Encounter Details Date Type Department Care Team (Latest Contact Info) Description 08/23/[address] [facility] Patient Access Admitting [address] [place] [address] Latricia Cordoba, PODODERMATOLOGIST, CAR WASH ATTENDANT [address] [place] [address] Special screening examination for respiratory [...] tuberculosis documented in this encounter Care Teams Pitch Gatherer Relationship Specialty Start Date End Date Provider, None [place] PCP - General 07/14/22 documented as of this encounter
--- OUTSIDE RECORDS SUMMARY | 2024-05-12 20:18 | XMS_ITS | Referral Summary ---
Author Organization [facility] Address [address] [place] [address] Care Team Providers Care Cardiopulmonary Technologist Name Role Phone Unavailable Primary Care Provider Unavailabl e Source Comments [facility],non-owned Affiliates and Associated Physician Practices is amultiple site organization consisting of ambulatory clinics and hospital sitesin [place], [place], [place]. This disclosure is being madepursuant to the Care Everywhere program and may not contain all information available regarding this patient. Last updated 18.[facility] Social History Tobacco Use Types Packs/Day Years Used Date Smoking Tobacco: Never Assessed Sex and Gender Information Value Date Recorded Sex Assigned at Not on file Gender Identity Not on file Sexual Orientation Not on file Plan of Treatment Not on file
--- OUTSIDE RECORDS SUMMARY | 2024-05-12 20:18 | XMS_ITS | Clinical Summary ---
Author Organization [facility] Address [address] [place] [address] Care Team Providers Care Product Planner Name Role Phone Unavailable Primary Care Provider Unavailabl e Source Comments [facility],non-owned Affiliates and Associated Physician Practices is amultiple site organization consisting of ambulatory clinics and hospital sitesin [place], [place], [place] and [place]. This disclosure is being madepursuant to the Care Everywhere program and may not contain all information available regarding this patient. Last updated 18.[facility] [employer]Support Social History Tobacco Use Types Packs/Day Years [...]
--- OUTSIDE RECORDS SUMMARY | 2024-05-12 20:18 | XMS_ITS | Encounter Summary ---
Author Organization [facility] Address [address] [place] [address] Phone Care Team Providers Care Custody Officer Name Role Phone Provider, None Primary Care Provider Unavailabl e Encounter Details Date Type Department Care Team (Late st Contact Info) Description 08/08/2021 Lab Requisition [facility] Services [address] [place] [address] Yaneli Spann APRN, OCC THERAPIST #[address] [place] [address] Encounter for antibody response examination; Encounter for [...] CDT) HEPATITIS B SURFACE ANTIBODY 12.54 mIU/mL [facility] [id number] 08/08/2021 10:46 PM CDT [facility] Comment: Detected Range: >12.00 Individual is considered immune to HBV infection Blood No Phlebotomy Charged / Unknown 08/08/2021 1:00 PM CDT 08/08/2021 3:41 PM CDT us Yaneli Spann PAEDIATRIC PHYSIOTHERAPIST, OCC THERAPIST CHEMISTRY ORDERAB LES Final Result [facility] [address] [place] [address] [place] [address], [place] documented in this encounter Visit Diagnoses Diagnosis Encounter for antibody response examination Antibody response examination Encounter for screening for other viral diseases documented in this encounter Care Teams Custody Officer Relationship Specialty Start Date End Date Provider, None [place] PCP - General 07/14/22 documented as of this encounter
--- OUTSIDE RECORDS SUMMARY | 2024-05-12 20:18 | XMS_ITS | Continuity of Care Document ---
Author Organization [facility] Address [address] [place] [address] Phone Care Team Providers Care Dip Dyer Name Role Phone Nakul Jones MD Unavailable Unavailable Allergies, Adverse Reactions, Alerts Substance Reaction Status Criticality PENICILLIN Active No Information CIPROFLOXACIN HCL Active No Informa tion ciprofloxacin Active No Information Medications Medication Instructions Dosage Effective Dates (start - stop) Status Comments Vazalore 81 mg capsule - Active Vitamin D2 1,250 mcg (50,000 unit) capsule take 1 capsule by oral route every month 83167 UNITS - Active vitamin E 100 unit [...] INC PLATELETS AND DIFFERENTIAL ROUTINE VENIPUNCTURE OFFICE [id number] BODY MASS INDEX DOCD SYST BP LT 130 MM HG DIAST BP < 80 MM HG Advance Directives Directive Yes / No Effective Date File Name No Information Encounters Encounter Description Practice Location Reason(s) For Visit Diagnoses Date Provider Providers Copied on Encounter [facility], [address], [place], [place], [id number], [place] tel:[phone] [facility] No Information Aundreatahir Mota. [address] [place] [address], [id number], . tel:[phone] OFFICE [id number] TAMI [facility], [address], [place], [place], [id number], [place] tel:[phone] [facility] acute problem (chief complaint) COVID-19 Aundreatahir Mota. [address] [place] [address], [id number], [place]. tel:[phone] Referring Provider: Nakul Jones, [address] [place] [address], [address] . tel:[phone] Family History Family Member Type Diagnosis Age At Onset No Information Payers Payer name Insurance type Covered constitution party ID Duane duquesherri(s) [facility] ACCESS [id number] Social History Type Description Quantity Date Captured Comments Alcohol Use Details Unknown Caffeine Use Details Unknown Tobacco Use Status No Information Smoking Status No Information Sex Female Sexual Orientation Straight or heterosexual Gender Identity Female Chief Complaint And Reason For Visit No Information Reason For Referral Reason For Referral No Information Plan Of Treatment Date Type Action Status Referral Referred To: [address] [place] [address], [phone] Ordered: Chest Xray, 2 Views ordered History [...] antibodies. Request form completed and faxed to [facility].Check CXR and CBC. Would go ahead and [...]
--- OUTSIDE RECORDS SUMMARY | 2024-05-12 20:18 | XMS_ITS | Patient Health Summary ---
Author Organization [facility] Address [address] [place] [address] Care Team Providers Care Rack Puller Name Role Phone Unavailable Primary Care Provider Unavailabl e Note from [facility],non-owned Affiliates and Associated Physician Practices is amultiple site organization consisting of ambulatory clinics and hospital sitesin [place], [place], [place] and [place]. This disclosure is being madepursuant to the Care Everywhere program and may not contain all information available regarding this patient. Last updated 18.[facility] Social History Tobacco Use Types Packs/Day Years Used Date Smoking Tobacco: Never Assessed Sex and Gender Information Value Date Recorded Sex Assigned at Not on file Gender Identity Not on file Sexual Orientation Not on file Procedures * PATHOLOGY/GENETICS HISTORICAL-ONBASE(Performed 08/23/2010) * GROSS + MICRO EXAM(Performed 09/10/2009) Results * PATHOLOGY/GENETICS HISTORICAL-ONBASE (08/23/2010) 08/23/2010 Historical Provider LAB - CHEMISTRY O RDERABLES [facility] * GROSS + MICRO EXAM (09/10/2009 8:51 [...]
--- OUTSIDE RECORDS SUMMARY | 2024-05-12 20:18 | XMS_ITS | Clinical Summary ---
Author Organization [facility] Address [address] [facility] [address] [address] [place] [address] Phone Care Team Providers Care Cannery Tender Engineer Name Role Phone Provider, None Primary Care Provider Unavailabl e Encounters Date Type Department Care Team Description 02/29/2024 Telephone [facility] Outpatient [address] [place] [address] Kiarra Montaño, PAC from Last 3 Months Immunizations Immunization Administration Dates Next Due Covid-19, Mrna, Lnp-s, Pf, 3 0 Mcg/0.3 Ml Dose (FNZ) 04/23/2020,04/02/2020 Hepatitis B Vaccine 09/14/2000,05/17/2000,2000 Influenza Vaccine, [...] age to complete this topic Care Teams Cannery Tender Engineer Relationship Specialty Start Date End Date Provider, None [place] PCP - General 07/14/22
--- OUTSIDE RECORDS SUMMARY | 2024-05-12 20:18 | XMS_ITS | Referral Summary ---
Author Organization [facility] Address [address] [place] [address] Care Team Providers Care Socket Welder Helper Name Role Phone Negrita Agrawal Primary Care [...] on file Legal Sex Female 12:24 AM GAMEMASTER Gender Identity Not on file Sexual Orientation [...] Plan of Treatment Not on file Insurance [facility] CHOICE PLUS Care Teams Socket Welder Helper Relationship Specialty Start Date End Date Negrita Agrawal PA PCP - General Physician Supervisor Steffen House 10/02/18
== END 2024-05-12 20:31 | disposition home or self-care (01) ==
LOC: ANHED 20:15
PROVIDERS: Emergency Provider Physician Assistant; PCP Physician Assistant
DX: S09.90XA Unspecified injury of head, initial encounter (principal); S16.1XXA Strain of muscle, fascia and tendon at neck level, initial encounter; S50.01XA Contusion of right elbow, initial encounter; V89.2XXA Person injured in unspecified motor-vehicle accident, traffic, initial encounter
CPT/HCPCS: 70450; 72125; 73030; 73080; 99284

== ENCOUNTER 2024-07-07 13:27 | Outpatient (CLI) | payer BC, SELFPAY ==
--- NOTE | ~2024-07-07 | XR_ITS ---
EXAMINATION: XR fl inj shoulder RT - MR/CT DATE: 07/07/2024 14:42 INDICATION: Acute onset right shoulder pain TECHNIQUE: A time-out was performed to verify the patient's name, date of , and procedure to b e performed. The procedure including the risks, benefits, and alternatives was discussed with the pat ient. Risks discussed included bleeding and infection. The patient understood the risks and agreed to proceed. The skin overlying the rotator cuff interval the right glenohumeral joint was prepped and draped in usual sterile fashion. Anesthetic was administered with 1% lidocaine subcutaneously. A 22 G needle was advanced under fluoroscopic guidance into the joint. Injection of 1 mL of Omnipaque 24 0 confirmed intra-articular position of the needle. Subsequently, injectate consisting of 12 mL of 2 :1:1 mixture of sterile saline:Omnipaque 240:1% lidocaine mixed 200:1 with 529 mg/mL Multihance gadol inium contrast was injected with intra-articular administration confirmed with intermittent fluorosco py. The needle was removed and the entry site was cleaned and dressed. There were no immediate compl ications. Fluoroscopy exposure time was 0.1 minutes. The total number of images was 97. Total DAP was 0.502 Gycm^2 FINDINGS: Real-time fluoroscopy demonstrates the needle and contrast in the right glenohumeral joint. IMPRESSION: 1. Successful right glenohumeral joint injection of a dilute gadolinium contrast mixture for subseque nt MRI arthrogram which will be dictated separately. Reviewed, dictated and finalized at location B. IMPRESSION: 1. Successful right glenohumeral joint injection of a dilute gadolinium contras t mixture for subsequent MRI arthrogram which will be dictated separately.
--- NOTE | ~2024-07-07 | MR_ITS ---
EXAMINATION: MR shoulder RT w con DATE: 07/07/2024 15:05 INDICATION: Acute onset right shoulder pain TECHNIQUE: Magnetic resonance imaging (MRI) of the right shoulder was performed following intra-nelly cular gadolinium contrast injection and without intravenous contrast. Details of the glenohumeral veronica nt injection have been dictated separately. Sequences included axial T2-weighted FS FSE, axial T1-we ighted FS FSE, coronal oblique T1-weighted FS FSE, coronal oblique T2-weighted FSE, sagittal T2-weigh rosalee FS FSE, sagittal T1-weighted FSE, and ABER (abduction external rotation) T1-weighted FS FSE. COMPARISON: None. FINDINGS: Coracoacromial arch: The acromion undersurface is curved in morphology (type II). The coracoacromial ligament is normal. M ild to moderate acromioclavicular osteoarthritis. Rotator cuff: Mild supraspinatus tendinopathy with prominent focal increased intrasubstance signal of less than flu id intensity, nonetheless suspicious for a small intrasubstance tear centered in the critical zone of the posterior supraspinatus tendon. The infraspinatus, teres minor and subscapularis tendons are nor mal. Normal rotator cuff muscle bulk and signal. Biceps tendon, glenoid labrum and glenohumeral cartilage: Long head of the biceps tendon is normal. There is also a normal variant accessory long head biceps t endon which merges with the anteriormost supraspinatus tendon.. Glenoid labrum is normal with normal anterosuperior sublingual foramen. Glenohumeral cartilage is normal. Partial tear at the glenoid side of the superior glenohumeral ligament. Bones and other: Normal marrow signal with no edema, fracture or abnormal marrow replacing process. No abnormal fluid signal in the subacromial/subdeltoid bursa to suggest bursitis. IMPRESSION: 1. Mild supraspinatus tendinopathy with likely small intrasubstance tear at the critical zone of the posterior supraspinatus tendon. 2. Partial tear at the glenoid side of the superior glenohumeral ligament. 3. Mild to moderate acromioclavicular osteoarthritis. 4. Normal labrum and glenohumeral cartilage. Reviewed, dictated and finalized at location B.
== END 2024-07-07 13:28 | disposition home or self-care (01) ==
LOC: MICIMG 13:28
PROVIDERS: PCP Physician Assistant; Visit Provider Physician Assistant
DX: S43.431A Superior glenoid labrum lesion of right shoulder, initial encounter (principal); M67.813 Other specified disorders of tendon, right shoulder; M19.011 Primary osteoarthritis, right shoulder; X58.XXXA Exposure to other specified factors, initial encounter
CPT/HCPCS: 23350; 73222; 77002; A9577

== ENCOUNTER 2024-08-04 16:13 | Outpatient (CLI) | payer BC, SELFPAY ==
--- NOTE | ~2024-08-04 | MR_ITS ---
MRI of the right elbow CLINICAL HISTORY: Pain TECHNIQUE: Proton-density and proton-density fat-sat images were acquired in the axial, coronal, and sagittal planes. FINDINGS: Ulnar collateral ligament is intact. Radial collateral ligament and the lateral ulnar colla teral ligament are intact. The common flexor and common extensor tendon origins are intact with minim al tendinosis. Bone marrow signals are unremarkable. No osseous or articular abnormality evident at the elbow joint. No degenerative change or erosive arthropathy. No significant joint effusion. Biceps, brachialis, and triceps tendons are intact. Visualized musculature unremarkable. No soft tiss ue mass or fluid collection evident. IMPRESSION: Minimal tendinosis of the common flexor and extensor tendon origins. Reviewed, dictated and finalized at location .
== END 2024-08-04 16:14 | disposition home or self-care (01) ==
LOC: MICIMG 16:14
PROVIDERS: PCP Physician Assistant; Visit Provider Family Medicine Sports Medicine
DX: G56.21 Lesion of ulnar nerve, right upper limb (principal); M67.823 Other specified disorders of tendon, right elbow; M67.833 Other specified disorders of tendon, right wrist
CPT/HCPCS: 73221

== ENCOUNTER 2024-12-29 13:42 | Outpatient (CLI) | payer BC, SELFPAY ==
--- OUTSIDE RECORDS SUMMARY | 2021-04-28 08:17 | XMS_ITS | Continuity of Care Document ---
Author Organization [facility] Address [address] [place] [address] Phone Care Team Providers Care Counseling Services Director Name Role Phone Nakul Jones MD Unavailable Unavailable Allergies, Adverse Reactions, Alerts Substance Reaction Status Criticality PENICILLIN Active No Information CIPROFLOXACIN HCL Active No Informa tion ciprofloxacin Active No Information Medications Medication Instructions Dosage Effective Dates (start - stop) Status Comments [place] 81 mg capsule - Active Vitamin D2 1,250 mcg (50,000 unit) capsule take 1 capsule by oral route every month 60990 UNITS - Active vitamin E 100 unit capsule - Active zinc 50 mg tablet - Active Vitamin C 100 mg tablet - Active Tylenol 325 mg capsule - Active ibuprofen 200 mg tablet take 6 tablet by oral route every hour as needed with food 1200 MG - Active Zofran 4 mg tablet take 2 tablet by ora l route 2 times every day - Active metoprolol tartrate 25 mg tablet take 0.5 tablet by oral route every day 12.5 MG - Active Procedures Procedure Date CBC, INC PLATELETS AND DIFFERENTIAL ROUTINE VENIPUNCTURE OFFICE [id number] BODY MASS INDEX DOCD SYST BP LT 130 MM HG DIAST BP < 80 MM HG Advance Directives Directive Yes / No Effective Date File Name No Information Encounters Encounter Description Practice Location Reason(s) For Visit Diagnoses Date Provider Providers Copied on Encounter [facility], [address], [place], [place], [id number], [place] tel:[phone] [facility] No Information Aundreatahir Mota. [address] [place] [address], [id number], . tel:[phone] OFFICE [id number] TAMI [facility], [address], [place], [place], [id number], [place] tel:[phone] [facility] acute problem (chief complaint) COVID-19 Aundreatahir Mota. [address] [place] [address], [id number], [place]. tel:[phone] Referring Provider: Nakul Jones, [address] [place] [address], [id number] . tel:[phone] Family History Family Member Type Diagnosis Age At Onset No Information Payers Payer name Insurance type Covered constitution party ID Duane duquesherri(s) [facility] ACCESS [id number] Social History Type Description Quantity Date Captured Comments Alcohol Use Details Unknown Caffeine Use Details Unknown Tobacco Use Status No Information Smoking Status No Information Sex Female Sexual Orientation Straight or heterosexual Gender Identity Female Chief Complaint And Reason For Visit No Information Reason For Referral Reason For Referral No Information Plan Of Treatment Date Type Action Status Referral Referred To: [address] [place] [address], [address] [phone] Ordered: Chest Xray, 2 Views ordered History Of Present Illness Encounter Date Complaint History Of Prese nt Illness acute problem Patient started on 01/20/2021 with fever, headache, malaise, non-productive cough with sharp pleuritic chest pain, loss of sense of taste and smell, ZARATE and muscle pain. She had previously completed her Covid vaccination (Moderna) but on 01/25/21 had a positive Covid test. No air hunger. Home O2 sats run 95-96%.Taking Vitamin D, C, E and zinc. Dad had a Z-pack so started it yesterday. Also started on Ivermectin with first dose last night.No chronic medical illnesses other than anemia and states Hgb usually runs about 9 (due to heavy periods). Not on any medications chronically other than iron but does not take it very oftenAllergic to PCN (allergy as infant) and Cipro (vasculitis). Side effect from Dapsone but does not recall what it was. 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 Request form completed and faxed to [facility].Check CXR and CBC. Would go ahead and finish her Z-pack but would not give steroids at this time due to her upcoming monoclonal antibodies and GI upset. Discussed that Ivermectin would be considered experimental and not FDA approved so if having GI upset consider stopping this as well. Related to COVID-19 Disease process Assessments Type Assessment Date No Information Patient Care Teams Name Effective Dates (start - stop) Status Members No Information
--- NOTE | ~2024-12-29 | MM_ITS ---
EXAMINATION: MM screening alexandra BI w leighann HISTORY: Screening TECHNIQUE: Craniocaudal and mediolateral oblique 3-D tomosynthesis images were obtained and synthetic 2-D images were generated. CAD analysis was submitted and interpreted. COMPARISON: 12/20/2023 BREAST PARENCHYMAL COMPOSITION: Not Dense: The breasts are almost entirely fatty. FINDINGS: There is no evidence of suspicious mass, calcification, or architectural distortion to suggest malignancy in either breast. [There has been no significant interval change. IMPRESSION: 1. No mammographic evidence of malignancy. Recommend routine screening mammography in one year. BI-RADS Category 1: Negative Reviewed, dictated, and finalized at Location A. Reviewed, dictated and finalized at location Q. IMPRESSION: 1. No mammographic evidence of malignancy. Recommend routine screening mammogra phy in one year. BI-RADS Category 1: Negative
--- OUTSIDE RECORDS SUMMARY | 2024-12-29 16:15 | XMS_ITS | Clinical Summary ---
Author Organization [facility] Address [address] [address] Phone Care Team Providers Care As400 Operator Name Role Phone Provider, None Primary Care Provider Unavailabl e Immunizations Immunization Administration Dates Next Due Covid-19, Mrna, Lnp-s, Pf, 3 0 Mcg/0.3 Ml Dose ([employer]) 04/23/2020,04/02/2020 Hepatitis B Vaccine 09/14/2000,05/17/2000,2000 Influenza Vaccine, [...] Comments Hepatitis C Virus (HCV) Screening 1974 Mammogram 1974 Pap Smear 1995 Cervical Cancer Screening (CCS) 2004 HPV/Cotest 2004 Cologuard 2019 Colonoscopy 2019 Colorectal Cancer Screening 2019 Immunochemical Fecal Occult Blood 2019 Pneumococcal Immunization (50+ years) (1 of 1 - PCV) 2024 Zoster Immunization (1 of 2) 2024 Influenza Immunization (#1) 2024 10/0 07/2022, 02/04/2021, 12/31/2014, Additional history exists SARS-COV-2 Immunization (3 - 2024- season) 2024 04/23/2020, 04/02/2020 Respiratory Syncytial Virus (RSV) Immunization (Adult) (1 - 1-dose 75+ series) 2049 Hepatitis B Immunization Completed 001, 05/17/2000, 04/16/2000 DTaP/Tdap/Td Immunization Discontinued 10/08/2023 TdaP Immunization Discontinued 10/08/2023 Human Papillomavirus (HPV) Immunization Aged Out No longer eligible based on patient's age to complete this topic Meningococcal Immunization (ACWY) Aged Out No longer eligible based on patient's age to complete this topic Rotavirus Immunization Aged Out No lo nger eligible based on patient's age to complete this topic Care Teams As400 Operator Relationship Specialty Start Date End Date Provider, None [place] PCP - General 07/14/22
--- OUTSIDE RECORDS SUMMARY | 2024-12-29 16:15 | XMS_ITS | Encounter Summary ---
Author Organization [facility] Address [address] [place] [address] Phone Care Team Providers Care Cable Strander Name Role Phone Provider, None Primary Care Provider Unavailabl e Encounter Details Date Type Department Care Team (Latest Contact Info) Description 08/23/2022 Transcribe Orders [facility] Patient Access Admitting [address] [place] [address] Latricia Cordoba, HAT MENDER, SCRUBBER OPERATOR [address] [place] [address] Special screening examination for respiratory [...] tuberculosis documented in this encounter Care Teams Cable Strander Relationship Specialty Start Date End Date Provider, None [place] PCP - General 07/14/22 documented as of this encounter
--- OUTSIDE RECORDS SUMMARY | 2024-12-29 16:15 | XMS_ITS | Clinical Summary ---
Author Organization [facility] Address [address] [place] [address] Care Team Providers Care Travel Med Surg Rn Name Role Phone Negrita Agrawal Primary Care Pr ovider Allergies Active Allergy Reactions Criticality Noted Date Comments Ciprofloxacin Dapsone Unknown 10/01/2018 Penicillins Medications ergocalciferol (VITAMIN D) 50,000 unit capsule Active ferrous gluconate 236 mg (27 mg iron) tablet Active acetaminophen (TYLENOL) 325 mg tablet Take 2 tablets (650 mg total) by mouth every 6 (six) hours as needed for pain Active cyclobenzaprine (FLEXERIL) 5 mg tablet Take 1 tablet (5 mg total) by mouth 3 (three) times a day as needed for muscle spasms 05/12/2024 Active meloxicam (MOBIC) 15 mg tablet TAKE 1 TABLET( 15 MG TOTAL) BY MOUTH DAILY FOR 7 DAYS, THEN CAN TAKE NEEDED 30 tablet 09/19/2024 Active Active Problems Problem Noted Date Diagnosed Date Closed injury of ulnar nerve 07/18/2024 Assessment & Plan (07/18/2024 2:46 PM CDT): Patient has complete diagnostic ultrasound today as noted in the procedure notes today. Patient does appear to have a subluxed ulnar nerve with dislocation with flexion this was noted actively on the dynamic ultrasound and I do think this warrants an MRI to further assess and make sure there are no other injuries to this area before considering sending to see Dr. Mahan for possible ulnar nerve transposition. In the meantime the patient was advised to avoid any excess physical activity with the right arm. 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 She should avoid any lifting with the right arm when she is exercising. She may continue to do exercise with the lower extremities for now. Depending on what the MRI results show we would consider referral to Dr. Mahan. She exhibited understanding and is in agreement with this plan of care. Multinodular goiter 02/02/2014 Assessment & Plan (01/25/2023 [...] Tobacco: Never Tobacco Cessation:Counseling Given: Not Answered AUDIT-C Answer Date Recorded Q1: How often do you have a drink containing alcohol? Never 05/22/2024 Q2: How many drinks containi ng alcohol do you have on a typical day when you are drinking? Patient does not drink Q3: How often do you have si x or more drinks on one occasion? 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 Gender Identity Not on file Sexual Orientation Not on file Obstetrics History Last Filed Vital Signs Vital Sign Reading Time Taken Comments Blood Pressure 119/82 08/15/2024 10:31 AM CDT Pulse 65 08/15/2024 10:31 AM CDT Temperature - - Respiratory Rate 16 07/18/2024 2:05 PM CDT Oxygen Saturation 100% 06/26/2012 1:08 PM CDT Inhaled Oxygen Concentration - - Weight 106.7 kg (235 lb 3.2 oz) 025 10:31 AM CDT Height 170.2 cm (5' 7) 08/15/2024 10:3 1 AM CDT Body Mass Index 36.84 08/15/2024 10:31 AM CDT Plan of Treatment Health Maintenance Due Date Last Done Comments Breast Cancer Screening-Mammogram 1974 Cervical Cancer Screening 1974 Colon Cancer Screening-Colonoscopy 1974 Depression Screening 1974 Hepatitis C Screening 1974 Regular Well Visit/Exam 18-64 1992 Zoster Vaccine (1 of 2) 2024 Covid-19 Vaccine ( season) 2024 05/28/2020, 05/07/2020, 04/23/2020, Additional history exists Influenza Vaccine (#1) 2024 3, 02/04/2021, 12/31/2014, Additional history exists DTaP/Tdap/Td Vaccine (2 - Td or Tdap) 10/07/2033 10/08/2023 Hepatitis B Screening Completed 09/14/2000 , 05/17/2000, 04/16/2000, Additional history exists Pneumococcal vaccine <65 Aged Out No longer eligible based on patient's age to complete this topic Insurance [facility] [employer] [place] Care Teams Travel Med Surg Rn Relationship Specialty Start Date End Date Negrita Agrawal PA PCP - General Physician Plant Worker 10/02/18
--- OUTSIDE RECORDS SUMMARY | 2024-12-29 16:15 | XMS_ITS | Encounter Summary ---
Author Organization [facility] Address [address] [place] [address] Phone Care Team Providers Care Loans Consultant Name Role Phone Provider, None Primary Care Provider Unavailabl e Encounter Details Date Type Department Care Team (Late st Contact Info) Description 08/08/2021 Lab Requisition [facility] [address] [place] [address] Yaneli Spann APRN, FIELD HUMAN RESOURCES MANAGER [address] [place] [address] Encounter for antibody response examination; Encounter for [...] CDT) HEPATITIS B SURFACE ANTIBODY 12.54 mIU/mL [facility] ARCH [id number] B 08/08/2021 10:46 PM CDT [facility] Comment: Detected Range: >12.00 Individual is considered immune to HBV infection Blood No Phlebotomy Charged / Unknown 08/08/2021 1:00 PM CDT 08/08/2021 3:41 PM CDT us Yaneli Spann ELECTRIC ARC WELDER, FIELD HUMAN RESOURCES MANAGER CHEMISTRY ORDERAB LES Final Result [facility] [address] [place] [address], [place] documented in this encounter Visit Diagnoses Diagnosis Encounter for antibody response examination Antibody response examination Encounter for screening for other viral diseases documented in this encounter Care Teams Loans Consultant Relationship Specialty Start Date End Date Provider, None [place] PCP - General 07/14/22 documented as of this encounter
--- OUTSIDE RECORDS SUMMARY | 2024-12-29 16:15 | XMS_ITS | Encounter Summary ---
Author Organization [facility] Address [address] [place] [address] Phone Care Team Providers Care Photographic Artist Name Role Phone Provider, None Primary Care Provider Unavailabl e Encounter Details Date Type Department Care Team (Late st Contact Info) Description 02/29/2024 Telephone [facility] Outpatient [address] [place] [address] Kiarra Montaño Pattie, [facility] [address] [place] [address] Social History Tobacco Use Types Packs/Day Years [...] on filedocumented in this encounter Care Teams Photographic Artist Relationship Specialty Start Date End Date Provider, Oliverio DAWKINS PCP - General 07/14/22 documented as of this encounter
--- OUTSIDE RECORDS SUMMARY | 2024-12-29 16:15 | XMS_ITS | Clinical Summary ---
Author Organization [facility] Address [address] [place] [address] Care Team Providers Care Railway Station Manager Name Role Phone Unavailable Primary Care Provider Unavailabl e Source Comments [facility],non-owned Affiliates and Associated Physician Practices is amultiple site organization consisting of ambulatory clinics and hospital sitesin [place], [place], [place] and [place]. This disclosure is being madepursuant to the Care Everywhere program and may not contain all information available regarding this patient. 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 Gender Identity Not on file Sexual Orientation [...] SCREENING 1974 LIPID TESTING 1974 MAMMOGRAM 1974 HIV SCREENING 1989 HEPATITIS C SCREENING 02/27/1992 DTAP/TDAP/TD VACCINES (1 - Tdap) 1993 HEPATITIS B VACCINE (1 of 3 - 19+ 3-dose series) 1993 PNEUMOCOCCAL VACCINE 50+ (1 of 1 - PCV) 2024 ZOSTER VACCINE (1 of 2) 2024 DEPRESSION SCREENING 04/16/2024 COVID-19 VACCINE (1 - 2023-2 5 season) 2024 INFLUENZA VACCINE (#1) 2024 HIB VACCINE Aged Out No longer eligi ble based on patient's age to complete this topic HPV VACCINE Aged Out No longer eligi ble based on patient's age to complete this topic MENINGOCOCCAL (Group B) VACC INE SHARED DECISION-MAKING Aged Out No longer eligibl e based on patient's age to complete this topic MENINGOCOCCAL GROUPS A/C/Y/W VACCINE Aged Out No longer eligible b ased on patient's age to complete this topic
== END 2024-12-29 13:43 | disposition home or self-care (01) ==
PROVIDERS: PCP Physician Assistant; Visit Provider Obstetrics & Gynecology
DX: Z12.31 Encounter for screening mammogram for malignant neoplasm of breast (principal)
CPT/HCPCS: 77063; 77067